=== PATIENT | female | born 1995 | race Caucasian/White ===

== ENCOUNTER 2017-07-02 19:54 | Emergency (ER) | payer BC ==
[2017-07-02 20:00] VITALS: BP 129/78
--- NOTE | 2017-07-02 20:18 | ER Report ---
History and Physical Time Seen By MD: 20:06 Hx. of Stated Complaint: patient cut her thumb on a can and is concerned for infections HPI/ROS CHIEF COMPLAINT: Laceration HISTORY OF PRESENT ILLNESS: This is a 22-year-old female who presents to the emergency department for a laceration to the distal end of her left thumb. Patient states she was opening a soup can about one hour prior to arrival and lacerated her thumb on the [place]. Patient states that she rinsed it out and decided come in for further evaluation. Patient denies numbness or tingling. No recent aches or chills, chest pain or shortness of breath. REVIEW OF SYSTEMS: Respiratory: No cough, no dyspnea. Cardiovascular: No chest pain, no palpitations. Gastrointestinal: No vomiting, no abdominal pain. Musculoskeletal: No back pain. Integument: As above. Past Medical/Surgical History Patient has no significant past medical or surgical history. Reviewed Nurses Notes: Yes Hx Substance Use Disorder: No Hx Alcohol Use: No Constitutional Vital Sign - Last 24 Hours 07/02/17 20:00 Temp 98.5 Pulse 58 Resp 19 B/P (MAP) 129/78 Pulse Ox 98 O2 Delivery Room Air Physical Exam General Appearance: The patient is alert, has no immediate need for airway protection and no current signs of toxicity. Eyes: Pupils equal and round no injection. Respiratory: Chest is non tender, lungs are clear to auscultation. Cardiac: regular rate and rhythm. Gastrointestinal: Abdomen is soft and non tender, no masses, bowel sounds normal. Musculoskeletal: Neck: Neck is supple and non tender. Extremities have full range of motion and are non tender. Skin: [place] laceration to the distal end of the left thumb. Approximately 0.5 cm. Bleeding controlled. DIFFERENTIAL DIAGNOSIS: After history and physical exam differential diagnosis was considered for laceration. Medical Decision Making ED Course/Re-evaluation ED Course The patient was admitted to room. A history of physical were obtained. Differential diagnoses were considered. The patient's thumb was anesthetized and repaired as noted below. The patient was instructed to monitor for signs of infection. She was also encouraged to follow-up with student health or return to the ED for any other concerns or worsening symptoms. The patient was in agreement with this plan care and discharged home. Procedure: Laceration repair. Verbal consent was obtained from the patient. The 0.5cm laceration on the distal left thumb was anesthetized in the usual fashion. The wound was scrubbed , draped and explored to its base with a gloved finger. There were no deep structures involved. No tendon injury was identified. The wound was repaired with dermabond. The wound repair was simple. The procedure was performed by myself. Decision to Disposition Date: Jul 02, 2017 Decision to Disposition Time: 20:30 Depart Departure Latest Vital Signs Vital Signs Date Time Temp Pulse Resp B/P (MAP) Pulse Ox O2 Delivery O2 Flow Rate FiO2 07/02/17 20:00 98.5 58 19 129/78 98 Room Air Impression: Primary Impression: Laceration of left thumb Condition: Improved Disposition: HOME OR SELF-CARE Referrals: [facility] Patient Instructions: Acute Wound Care (ED), Finger Laceration (ED) Additional Instructions: Drink plenty of fluids. Get plenty of rest. Monitor at the wound for signs of infection. May apply a bandage to the thumb when you get home. May return to the emergency department for any other concerns or worsening symptoms. Problem Qualifiers Primary Impression: Laceration of left thumb Encounter type: initial encounter Damage to nail status: without damage Foreign body presence: without foreign body Qualified Codes: S61.012A - Laceration without foreign body of left thumb without damage to nail, initial encounter MARCO A SPENCER-JEFFREY Jul 02, 2017 20:18
== END 2017-07-02 20:34 | disposition home or self-care (01) ==
LOC: ER 20:08
DX: S61.012A Laceration without foreign body of left thumb without damage to nail, initial encounter (principal); W26.9XXA Contact with unspecified sharp object(s), initial encounter
CPT/HCPCS: 99282